=== PATIENT | female | born 1950 | race Caucasian/White ===

== ENCOUNTER 2018-02-25 13:24 | Emergency (ER) | payer OTHER, SELFPAY ==
[2018-02-25 13:25] VITALS: BP 140/67; PULSE 70; RESP 20; TEMP 36.5; O2SAT 97; BMI 26.1
[2018-02-25 13:49] VITALS: BP 123/75; PULSE 66; RESP 14
[2018-02-25 13:55] LABS: Add Manual Diff / Slide Review NO; Basophils Percent Auto 0.9 % (0-2); Eosinophils Percent Auto 5.6 % (2-4); Hematocrit 42.4 % (36-46); Hemoglobin 14.6 g/dL (12.0-16.0); Lymphocytes Percent Auto 24.8 % (25-40); Mean Corpuscular HGB Conc 34.4 % (30-36); Mean Corpuscular Hemoglobin 30.7 PG (26-34); Mean Corpuscular Volume 89.5 fL (80-100); Monocytes Percent Auto 7.4 % (3-14); Neutrophils Absolute Auto 4800 /uL (3000-5900); Neutrophils Percent Auto 61.3 % (50-75); Platelet Count 211 X10^3/uL (150-400); Red Blood Cell Count 4.74 X10^6/uL (4.0-5.2); Red Cell Distribution Width 13.3 % (11.6-14.8); White Blood Cell Count 7.8 X10^3/uL (4.5-11.0)
[2018-02-25 14:01] LABS: Prothrombin Time 10.7 SECONDS (10.1-12.7)
[2018-02-25 14:04] LABS: PTT Partial Thromboplastin Tim 26 SECONDS (26.4-36.2)
--- NOTE | 2018-02-25 14:07 | DI.CT.S_ITS ---
PROCEDURE: CT HEAD/BRAIN WO CON INDICATIONS: speech difficuly a couple of days TECHNIQUE: Noncontrast 4.5 mm thick angled axial sections acquired from the foramen magnum to the vertex, with coronal and sagittal reformats. For radiation dose reduction, the following was used: automated exposure control, adjustment of mA and/or kV according to patient size. COMPARISON: None. FINDINGS: Image quality: Excellent. CSF spaces: Basal cisterns are patent. No extra-axial fluid collections. The ventricles are symmetric in size and shape. Brain: No intracranial bleeds or masses. 1 cm soft tissue attenuation focus seen in the right parietal scalp There is cerebral volume loss for age, with resultant ventricular and sulcal prominence. There are periventricular and deep white matter chronic small vessel ischemic changes. There is intracranial internal carotid artery atherosclerosis. Skull and face: Calvarium and visualized facial bones appear intact, without suspicious lesions. Sinuses: Visualized sinuses and mastoids are clear. IMPRESSION: No acute intracranial process. Soft tissue focus involving the right parietal scalp. Please nata clinically and with direct visual inspection is these findings are nonspecific Dictated by: Zack Conroy M.D. on 02/25/2018 at 15:47 Approved by: Zack Conroy M.D. on 02/25/2018 at 15:49
--- NOTE | 2018-02-25 14:20 | ED.NEUROSD ---
HPI - Neuro Symptoms/Deficit General Chief Complaint: Neuro Symptoms/Deficit Stated Complaint: SLURRED SPEECH Time Seen by Provider: 02/25/18 13:45 Source: patient and family Mode of arrival: ambulatory Limitations: no limitations History of Present Illness HPI Narrative: Patient is a 67-year-old female who presents with a variety of complaints. To me her large complaint is back pain with numbness and tingling. She does have a history of back pain. She is walking around today when it started hurting her that she then laid down on cement and felt better. Her says that her speech is been a little bit off for the last 3 days. Just maybe some difficulty finding words actually does find the correct word in may be little slurring of speech. No vision changes no unilateral weakness, no vomiting. She does take fluoxetine but she has been taking that for number of years is been no change in her dosage she denies taking any extra. On Anticoagulants: No Related Data Previous Rx's Medication Instructions Recorded fluoxetine 20 mg PO QDAY #90 cap 12/15/16 fluoxetine 10 mg PO DAILY #30 cap 02/25/18 Allergies Allergy/AdvReac Type Severity Reaction Status Date / Time shellfish derived Allergy Intermediate Hives Verified 02/25/18 15:10 Review of Systems Review of Systems All systems reviewed & are unremarkable except as noted in HPI and below Constitutional Denies chills, Denies fever(s), Denies lethargy and Denies weakness Cardiovascular Denies chest pain, Denies irregular heart rhythm, Denies lightheadedness, Denies palpitations, Denies dyspnea, Denies dyspnea on exertion and Denies orthopnea Respiratory Denies cough, Denies dyspnea, Denies dyspnea on exertion and Denies wheezing Gastrointestinal Gastrointestinal: Denies abdominal pain, Denies change in bowel habits, Denies diarrhea, Denies nausea and Denies vomiting Genitourinary Denies hematuria, Denies flank pain, Denies urinary incontinence and Denies urinary urgency Musculoskeletal Reports back pain, Denies muscle weakness, Denies numbness and Denies tingling Integumentary/Breasts Denies pruritus, Denies erythema, Denies rash and Denies wounds Neurologic Reports as per HPI, Reports behavioral changes, Denies confusion, Denies numbness, Denies tingling and Denies weakness Psychiatric Reports behavioral changes and Denies confusion Endocrine Denies palpitations Allergic/Immunologic Denies wheezing [facility] Medical History Depression (Acute) Social History Smoking Status: Never smoker Exam Initial Vital Signs Initial Vital Signs: Vital Signs Temperature 97.7 F 02/25/18 13:25 Pulse Rate 70 02/25/18 13:25 Respiratory Rate 20 02/25/18 13:25 Blood Pressure 140/67 02/25/18 13:25 Pulse Oximetry 97 02/25/18 13:25 GENERAL: Well-appearing, well-nourished and in no acute distress. HEENT: Head atraumatic,EOMI, pupils reactive, face symmetric, dry mucous membranes CARDIOVASCULAR: Regular rate and rhythm without murmurs, rubs or gallops. RESPIRATORY: Breath sounds equal bilaterally, no wheezes rales or rhonchi. ABDOMEN: Soft, nontender. Normoactive bowel sounds all 4 quadrants. No guarding or rebound. EXTREMITIES: Normal range of motion, no clubbing or edema. Neurovascularly intact NEUROLOGICAL: Alert and oriented x4.Normal gait and speech. Cranial nerves II through XII grossly intact. Good [id number], good [id number], strength equal bilaterally, no dysarthria or aphasia, sensation in tact to soft touch bilaterally, no visual changes, no facial droop SKIN: Warm, dry, no laceration, no petechiae, no rashes or lesions. Scores NIH Stroke Scale Level of Conciousness: Alert, keenly responsive Ask month/age: Answers both questions correctly. Open/close eyes, close hand: Performs both tasks correctly Best gaze horizontal: Normal Visual godfrey: No visual loss Facial palsy: Normal symetrical movement Left arm drift: No drift for full 10 sec Right arm drift: No drift for full 10 sec Left leg drift: No drift for full 10 sec Right leg drift: No drift for full 10 sec Limb ataxia: Absent Sensory on face/arms/legs: Normal, no sensory loss Best language: No aphasia, normal Dysarthria: Normal Extinction or inattention: No abnormality Total NIH Stroke scale score: 0 Course Orders Ordered: ED Orders 02/25/18 13:39 EKG-12 Lead Stat 02/25/18 13:45 Complete Blood Count AUTO DIFF Stat Comprehensive Metabolic Panel Stat Ethanol (ETOH) Stat Partial Thromboplastin Time Stat Prothrombin Time INR Stat 02/25/18 14:07 CT head/brain wo con Stat 02/25/18 15:10 Urine Drug Screen, Rapid Stat Vital Signs - 8 hr 02/25/18 13:25 02/25/18 13:49 02/25/18 14:30 Temperature 97.7 F Pulse Rate 70 66 Respiratory Rate 20 14 Blood Pressure 140/67 Blood Pressure [Right Arm] 123/75 138/90 Pulse Oximetry 97 02/25/18 15:21 02/25/18 15:30 02/25/18 16:43 Temperature Pulse Rate 77 75 72 Respiratory Rate 14 16 16 Blood Pressure Blood Pressure [Right Arm] 132/80 120/79 122/73 Pulse Oximetry 100 98 98 MDM - Neuro Symptoms/Deficit Lab Data Attestation: I reviewed the patient's lab results. Result diagrams: 02/25/18 13:45 02/25/18 13:45 Lab Results 02/25/18 02/25/18 02/25/18 Range/Units 13:45 13:45 13:45 WBC 7.8 (4.5-11.0) X10^3/uL RBC 4.74 (4.0-5.2) X10^6/uL Hgb 14.6 (12.0-16.0) g/dL Hct 42.4 (36-46) % MCV 89.5 (80-100) fL MCH 30.7 (26-34) PG MCHC 34.4 (30-36) % RDW 13.3 (11.6-14.8) % Plt Count 211 (150-400) X10^3/uL Neut % (Auto) 61.3 (50-75) % Lymph % (Auto) 24.8 L (25-40) % [place] % (Auto) 7.4 (3-14) % Eos % (Auto) 5.6 H (2-4) % Baso % (Auto) 0.9 (0-2) % Neut # (Auto) 4800 (1178-2523) /uL PT 10.7 (10.1-12.7) SECONDS INR 1.0 (0.9-1.3) APTT 26 L (26.4-36.2) SECONDS Sodium 144 (137-145) mmol/L Potassium 4.3 (3.4-5.1) mmol/L Chloride 109 H (98-107) mmol/L Carbon Dioxide 27 (22-32) mmol/L BUN 13 (7-17) mg/dL Creatinine 0.70 (0.52-1.04) mg/dL Estimated GFR > 60.0 (>60) mL/min BUN/Creatinine Ratio 18.6 (6-22) Glucose 96 (80-110) mg/dL Calcium 9.4 (8.4-10.2) mg/dL Total Bilirubin 0.5 (0.2-1.3) mg/dL AST 29 (14-36) IU/L ALT 32 (9-52) IU/L Alkaline Phosphatase 73 (38-126) U/L Total Protein 7.3 (6.3-8.2) g/dL Albumin 4.3 (3.5-5.0) g/dL Globulin 3.0 (1.7-4.1) g/dL Albumin/Globulin Ratio 1.4 (1.0-2.8) Urine Opiates Screen (Negative) Ur Oxycodone Screen (Negative) Urine Methadone Screen (Negative) Ur Barbiturates Screen (Negative) U Tricyclic Antidepress (Negative) Ur Phencyclidine Scrn (Negative) Ur Amphetamines Screen (Negative) U Methamphetamines Scrn (Negative) Ur MDMA Scrn (Ecstasy) (Negative) U Benzodiazepines Scrn (Negative) Urine Cocaine Screen (Negative) U Marijuana (THC) Screen (Negative) Ethyl Alcohol < 10 mg/dL 02/25/18 Range/Units 15:10 WBC (4.5-11.0) X10^3/uL RBC (4.0-5.2) X10^6/uL Hgb (12.0-16.0) g/dL Hct (36-46) % MCV (80-100) fL MCH (26-34) PG MCHC (30-36) % RDW (11.6-14.8) % Plt Count (150-400) X10^3/uL Neut % (Auto) (50-75) % Lymph % (Auto) (25-40) % [place] % (Auto) (3-14) % Eos % (Auto) (2-4) % Baso % (Auto) (0-2) % Neut # (Auto) (0763-5460) /uL PT (10.1-12.7) SECONDS INR (0.9-1.3) APTT (26.4-36.2) SECONDS Sodium (137-145) mmol/L Potassium (3.4-5.1) mmol/L Chloride (98-107) mmol/L Carbon Dioxide (22-32) mmol/L BUN (7-17) mg/dL Creatinine (0.52-1.04) mg/dL Estimated GFR (>60) mL/min BUN/Creatinine Ratio (6-22) Glucose (80-110) mg/dL Calcium (8.4-10.2) mg/dL Total Bilirubin (0.2-1.3) mg/dL AST (14-36) IU/L ALT (9-52) IU/L Alkaline Phosphatase (38-126) U/L Total Protein (6.3-8.2) g/dL Albumin (3.5-5.0) g/dL Globulin (1.7-4.1) g/dL Albumin/Globulin Ratio (1.0-2.8) Urine Opiates Screen Negative (Negative) Ur Oxycodone Screen Negative (Negative) Urine Methadone Screen Negative (Negative) Ur Barbiturates Screen Negative (Negative) U Tricyclic Antidepress Negative (Negative) Ur Phencyclidine Scrn Negative (Negative) Ur Amphetamines Screen Negative (Negative) U Methamphetamines Scrn Negative (Negative) Ur MDMA Scrn (Ecstasy) Negative (Negative) U Benzodiazepines Scrn Negative (Negative) Urine Cocaine Screen Negative (Negative) U Marijuana (THC) Screen Negative (Negative) Ethyl Alcohol mg/dL Urine Dip Bedside Urine Glucose Negative Bedside Urine Bilirubin - Negative Bedside Urine Ketone - Negative Urine Specific Pep 1.015 Bedside Urine Occult Blood - Negative Bedside Urine pH 7.0 Bedside Urine Protein - Negative Bedside Urine Urobilinogen - Negative Bedside Urine Nitrite - Negative Bedside Urine Leukocytes - Negative Esterase Imaging Data CT scan - head: Radiologist's impression: PROCEDURE: CT HEAD/BRAIN WO CON INDICATIONS: speech difficuly a couple of days TECHNIQUE: Noncontrast 4.5 mm thick angled axial sections acquired from the foramen magnum to the vertex, with coronal and sagittal reformats. For radiation dose reduction, the following was used: automated exposure control, adjustment of mA and/or kV according to patient size. COMPARISON: None. FINDINGS: Image quality: Excellent. CSF spaces: Basal cisterns are patent. No extra-axial fluid collections. The ventricles are symmetric in size and shape. Brain: No intracranial bleeds or masses. 1 cm soft tissue attenuation focus seen in the right parietal scalp There is cerebral volume loss for age, with resultant ventricular and sulcal prominence. There are periventricular and deep white matter chronic small vessel ischemic changes. There is intracranial internal carotid artery atherosclerosis. Skull and face: Calvarium and visualized facial bones appear intact, without suspicious lesions. Sinuses: Visualized sinuses and mastoids are clear. IMPRESSION: No acute intracranial process. Soft tissue focus involving the right parietal scalp. Please nata clinically and with direct visual inspection is these findings are nonspecific Dictated by: Zack Conroy M.D. on 02/25/2018 at 15:47 ECG Data Attestation: I personally reviewed and interpreted this ECG as follows: Prior ECG tracings: available for review Interpretation: Sinus rhythm rate 63 SC interval 177 QRS 80 a QTC [address] changes or T-wave inversions no prior to compare [facility] Narrative Medical decision making narrative: The patient's speech really I do not appreciate dysarthria or a facial her mouth seems try to me. Possibility of medication reaction of fluoxetine can cause altered mental status. She shows no signs of serotonin syndrome she denies taking any [id number] medications. She really was complaining more of back pain and leg pain. She has been resting comfortably in the gurney without any difficulty. She has not requested pain medication or appeared in any pain. Patient really does not have signs or symptoms consistent with serotonin syndrome or anticholinergic syndrome. She does seem to be agitated but not consistently she is not tachycardic or hyperthermic. She does have some side effects of the fluoxetine. And despite being on medication for a number of years can developed some adverse reactions. She does not seem toxic. At this time I will decrease her fluoxetine dose and recommend close follow-up with her primary care physician. Both her and she understand this. I discussed all findings with the patient and spouse, Education has been performed regarding treatment plan, diagnosis, warning signs and symptoms and all concerns have been addressed. Verbally agree with and understood all of the above. Discharge Plan Departure Patient Disposition: Home Clinical Impression: Dehydration, Adverse reaction to antidepressant drug Discharge Date/Time: 02/25/18 16:53 Interventions: ED Discharge Assessment Last Done: 02/25/18 16:52 Instructions: DI for Adverse Drug Reaction -- Other Activity Restrictions/Additional Instructions: *You have been diagnosed with possible drug reaction and dehydration *What to do: No sign of TIA or mini-stroke no sign of infection blood work and CT scan and EKG are reassuring *Continue to take medications as directed -stop taking 20 mg of fluoxetine -start time taking 10 mg of fluoxetine, follow up with primary care provider for further assistance Do not mix [id number] medication with her antidepressant *Follow up with your primary care provider in 2-3 days *Return to ER if you should have worsening agitation, anxiety, fever or any new, worsening or concerning symptoms Prescriptions: New fluoxetine 10 mg capsule 10 mg PO DAILY Qty: 30 RF: 0 No Action fluoxetine 20 MG capsule 20 mg PO QDAY Qty: 90 RF: 3 Referrals: Jamison Mcgee [Non-Staff] - Kofi Cisneros MD [Primary Care Provider] -
--- NOTE | 2018-02-25 14:26 | ED_ITS ---
HPI - Neuro Symptoms/Deficit General Chief Complaint: Neuro Symptoms/Deficit Stated Complaint: SLURRED SPEECH Time Seen by Provider: 02/25/18 13:45 Source: patient and family Mode of arrival: ambulatory Limitations: no limitations History of Present Illness HPI Narrative: Patient is a 67-year-old female who presents with a variety of complaints. To me her large complaint is back pain with numbness and tingling. She does have a history of back pain. She is walking around today when it started hurting her that she then laid down on cement and felt better. Her says that her speech is been a little bit off for the last 3 days. Just maybe some difficulty finding words actually does find the correct word in may be little slurring of speech. No vision changes no unilateral weakness, no vomiting. She does take fluoxetine but she has been taking that for number of years is been no change in her dosage she denies taking any extra. On Anticoagulants: No Related Data Previous Rx's Medication Instructions Recorded fluoxetine 20 mg PO QDAY #90 cap 12/15/16 fluoxetine 10 mg PO DAILY #30 cap 02/25/18 Allergies Allergy/AdvReac Type Severity Reaction Status Date / Time shellfish derived Allergy Intermediate Hives Verified 02/25/18 15:10 Review of Systems Review of Systems All systems reviewed & are unremarkable except as noted in HPI and below Constitutional Denies chills, Denies fever(s), Denies lethargy and Denies weakness Cardiovascular Denies chest pain, Denies irregular heart rhythm, Denies lightheadedness, Denies palpitations, Denies dyspnea, Denies dyspnea on exertion and Denies orthopnea Respiratory Denies cough, Denies dyspnea, Denies dyspnea on exertion and Denies wheezing Gastrointestinal Gastrointestinal: Denies abdominal pain, Denies change in bowel habits, Denies diarrhea, Denies nausea and Denies vomiting Genitourinary Denies hematuria, Denies flank pain, Denies urinary incontinence and Denies urinary urgency Musculoskeletal Reports back pain, Denies muscle weakness, Denies numbness and Denies tingling Integumentary/Breasts Denies pruritus, Denies erythema, Denies rash and Denies wounds Neurologic Reports as per HPI, Reports behavioral changes, Denies confusion, Denies numbness, Denies tingling and Denies weakness Psychiatric Reports behavioral changes and Denies confusion Endocrine Denies palpitations Allergic/Immunologic Denies wheezing REPLACED BY [facility] Medical History Depression (Acute) Social History Smoking Status: Never smoker Exam Initial Vital Signs Initial Vital Signs: Vital Signs Temperature 97.7 F 02/25/18 13:25 Pulse Rate 70 02/25/18 13:25 Respiratory Rate 20 02/25/18 13:25 Blood Pressure 140/67 02/25/18 13:25 Pulse Oximetry 97 02/25/18 13:25 GENERAL: Well-appearing, well-nourished and in no acute distress. HEENT: Head atraumatic,EOMI, pupils reactive, face symmetric, dry mucous membranes CARDIOVASCULAR: Regular rate and rhythm without murmurs, rubs or gallops. RESPIRATORY: Breath sounds equal bilaterally, no wheezes rales or rhonchi. ABDOMEN: Soft, nontender. Normoactive bowel sounds all 4 quadrants. No guarding or rebound. EXTREMITIES: Normal range of motion, no clubbing or edema. Neurovascularly intact NEUROLOGICAL: Alert and oriented x4.Normal gait and speech. Cranial nerves II through XII grossly intact. Good [id number], good [id number], strength equal bilaterally, no dysarthria or aphasia, sensation in tact to soft touch bilaterally, no visual changes, no facial droop SKIN: Warm, dry, no laceration, no petechiae, no rashes or lesions. Scores NIH Stroke Scale Level of Conciousness: Alert, keenly responsive Ask month/age: Answers both questions correctly. Open/close eyes, close hand: Performs both tasks correctly Best gaze horizontal: Normal Visual godfrey: No visual loss Facial palsy: Normal symetrical movement Left arm drift: No drift for full 10 sec Right arm drift: No drift for full 10 sec Left leg drift: No drift for full 10 sec Right leg drift: No drift for full 10 sec Limb ataxia: Absent Sensory on face/arms/legs: Normal, no sensory loss Best language: No aphasia, normal Dysarthria: Normal Extinction or inattention: No abnormality Total NIH Stroke scale score: 0 Course Orders Ordered: ED Orders 02/25/18 13:39 EKG-12 Lead Stat 02/25/18 13:45 Complete Blood Count AUTO DIFF Stat Comprehensive Metabolic Panel Stat Ethanol (ETOH) Stat Partial Thromboplastin Time Stat Prothrombin Time INR Stat 02/25/18 14:07 CT head/brain wo con Stat 02/25/18 15:10 Urine Drug Screen, Rapid Stat Vital Signs - 8 hr 02/25/18 13:25 02/25/18 13:49 02/25/18 14:30 Temperature 97.7 F Pulse Rate 70 66 Respiratory Rate 20 14 Blood Pressure 140/67 Blood Pressure [Right Arm] 123/75 138/90 Pulse Oximetry 97 02/25/18 15:21 02/25/18 15:30 02/25/18 16:43 Temperature Pulse Rate 77 75 72 Respiratory Rate 14 16 16 Blood Pressure Blood Pressure [Right Arm] 132/80 120/79 122/73 Pulse Oximetry 100 98 98 MDM - Neuro Symptoms/Deficit Lab Data Attestation: I reviewed the patient's lab results. Result diagrams: 02/25/18 13:45 02/25/18 13:45 Lab Results 02/25/18 02/25/18 02/25/18 Range/Units 13:45 13:45 13:45 WBC 7.8 (4.5-11.0) X10^3/uL RBC 4.74 (4.0-5.2) X10^6/uL Hgb 14.6 (12.0-16.0) g/dL Hct 42.4 (36-46) % MCV 89.5 (80-100) fL MCH 30.7 (26-34) PG MCHC 34.4 (30-36) % RDW 13.3 (11.6-14.8) % Plt Count 211 (150-400) X10^3/uL Neut % (Auto) 61.3 (50-75) % Lymph % (Auto) 24.8 L (25-40) % Flag[place] % (Auto) 7.4 (3-14) % Eos % (Auto) 5.6 H (2-4) % Baso % (Auto) 0.9 (0-2) % Neut # (Auto) 4800 (3021-5743) /uL PT 10.7 (10.1-12.7) SECONDS INR 1.0 (0.9-1.3) APTT 26 L (26.4-36.2) SECONDS Sodium 144 (137-145) mmol/L Potassium 4.3 (3.4-5.1) mmol/L Chloride 109 H (98-107) mmol/L Carbon Dioxide 27 (22-32) mmol/L BUN 13 (7-17) mg/dL Creatinine 0.70 (0.52-1.04) mg/dL Estimated GFR > 60.0 (>60) mL/min BUN/Creatinine Ratio 18.6 (6-22) Glucose 96 (80-110) mg/dL Calcium 9.4 (8.4-10.2) mg/dL Total Bilirubin 0.5 (0.2-1.3) mg/dL AST 29 (14-36) IU/L ALT 32 (9-52) IU/L Alkaline Phosphatase 73 (38-126) U/L Total Protein 7.3 (6.3-8.2) g/dL Albumin 4.3 (3.5-5.0) g/dL Globulin 3.0 (1.7-4.1) g/dL Albumin/Globulin Ratio 1.4 (1.0-2.8) Urine Opiates Screen (Negative) Ur Oxycodone Screen (Negative) Urine Methadone Screen (Negative) Ur Barbiturates Screen (Negative) U Tricyclic Antidepress (Negative) Ur Phencyclidine Scrn (Negative) Ur Amphetamines Screen (Negative) U Methamphetamines Scrn (Negative) Ur MDMA Scrn (Ecstasy) (Negative) U Benzodiazepines Scrn (Negative) Urine Cocaine Screen (Negative) U Marijuana (THC) Screen (Negative) Ethyl Alcohol < 10 mg/dL 02/25/18 Range/Units 15:10 WBC (4.5-11.0) X10^3/uL RBC (4.0-5.2) X10^6/uL Hgb (12.0-16.0) g/dL Hct (36-46) % MCV (80-100) fL MCH (26-34) PG MCHC (30-36) % RDW (11.6-14.8) % Plt Count (150-400) X10^3/uL Neut % (Auto) (50-75) % Lymph % (Auto) (25-40) % Flag[place] % (Auto) (3-14) % Eos % (Auto) (2-4) % Baso % (Auto) (0-2) % Neut # (Auto) (2362-5057) /uL PT (10.1-12.7) SECONDS INR (0.9-1.3) APTT (26.4-36.2) SECONDS Sodium (137-145) mmol/L Potassium (3.4-5.1) mmol/L Chloride (98-107) mmol/L Carbon Dioxide (22-32) mmol/L BUN (7-17) mg/dL Creatinine (0.52-1.04) mg/dL Estimated GFR (>60) mL/min BUN/Creatinine Ratio (6-22) Glucose (80-110) mg/dL Calcium (8.4-10.2) mg/dL Total Bilirubin (0.2-1.3) mg/dL AST (14-36) IU/L ALT (9-52) IU/L Alkaline Phosphatase (38-126) U/L Total Protein (6.3-8.2) g/dL Albumin (3.5-5.0) g/dL Globulin (1.7-4.1) g/dL Albumin/Globulin Ratio (1.0-2.8) Urine Opiates Screen Negative (Negative) Ur Oxycodone Screen Negative (Negative) Urine Methadone Screen Negative (Negative) Ur Barbiturates Screen Negative (Negative) U Tricyclic Antidepress Negative (Negative) Ur Phencyclidine Scrn Negative (Negative) Ur Amphetamines Screen Negative (Negative) U Methamphetamines Scrn Negative (Negative) Ur MDMA Scrn (Ecstasy) Negative (Negative) U Benzodiazepines Scrn Negative (Negative) Urine Cocaine Screen Negative (Negative) U Marijuana (THC) Screen Negative (Negative) Ethyl Alcohol mg/dL Urine Dip Bedside Urine Glucose Negative Bedside Urine Bilirubin - Negative Bedside Urine Ketone - Negative Urine Specific Hoffmeister 1.015 Bedside Urine Occult Blood - Negative Bedside Urine pH 7.0 Bedside Urine Protein - Negative Bedside Urine Urobilinogen - Negative Bedside Urine Nitrite - Negative Bedside Urine Leukocytes - Negative Esterase Imaging Data CT scan - head: Radiologist's impression: PROCEDURE: CT HEAD/BRAIN WO CON INDICATIONS: speech difficuly a couple of days TECHNIQUE: Noncontrast 4.5 mm thick angled axial sections acquired from the foramen magnum to the vertex, with coronal and sagittal reformats. For radiation dose reduction, the following was used: automated exposure control, adjustment of mA and/or kV according to patient size. COMPARISON: None. FINDINGS: Image quality: Excellent. CSF spaces: Basal cisterns are patent. No extra-axial fluid collections. The ventricles are symmetric in size and shape. Brain: No intracranial bleeds or masses. 1 cm soft tissue attenuation focus seen in the right parietal scalp There is cerebral volume loss for age, with resultant ventricular and sulcal prominence. There are periventricular and deep white matter chronic small vessel ischemic changes. There is intracranial internal carotid artery atherosclerosis. Skull and face: Calvarium and visualized facial bones appear intact, without suspicious lesions. Sinuses: Visualized sinuses and mastoids are clear. IMPRESSION: No acute intracranial process. Soft tissue focus involving the right parietal scalp. Please nata clinically and with direct visual inspection is these findings are nonspecific Dictated by: Zack Conroy M.D. on 02/25/2018 at 15:47 ECG Data Attestation: I personally reviewed and interpreted this ECG as follows: Prior ECG tracings: available for review Interpretation: Sinus rhythm rate 63 [place] interval 177 QRS 80 a QTC [address] changes or T-wave inversions no prior to compare [facility] Narrative Medical decision making narrative: The patient's speech really I do not appreciate dysarthria or a facial her mouth seems try to me. Possibility of medication reaction of fluoxetine can cause altered mental status. She shows no signs of serotonin syndrome she denies taking any [id number] medications. She really was complaining more of back pain and leg pain. She has been resting comfortably in the gurney without any difficulty. She has not requested pain medication or appeared in any pain. Patient really does not have signs or symptoms consistent with serotonin syndrome or anticholinergic syndrome. She does seem to be agitated but not consistently she is not tachycardic or hyperthermic. She does have some side effects of the fluoxetine. And despite being on medication for a number of years can developed some adverse reactions. She does not seem toxic. At this time I will decrease her fluoxetine dose and recommend close follow-up with her primary care physician. Both her and she understand this. I discussed all findings with the patient and spouse, Education has been performed regarding treatment plan, diagnosis, warning signs and symptoms and all concerns have been addressed. Verbally agree with and understood all of the above. Discharge Plan Departure Patient Disposition: Home Clinical Impression: Dehydration, Adverse reaction to antidepressant drug Discharge Date/Time: 02/25/18 16:53 Interventions: ED Discharge Assessment Last Done: 02/25/18 16:52 Instructions: DI for Adverse Drug Reaction -- Other Activity Restrictions/Additional Instructions: *You have been diagnosed with possible drug reaction and dehydration *What to do: No sign of TIA or mini-stroke no sign of infection blood work and CT scan and EKG are reassuring *Continue to take medications as directed -stop taking 20 mg of fluoxetine -start time taking 10 mg of fluoxetine, follow up with primary care provider for further assistance Do not mix [id number] medication with her antidepressant *Follow up with your primary care provider in 2-3 days *Return to ER if you should have worsening agitation, anxiety, fever or any new , worsening or concerning symptoms Prescriptions: New fluoxetine 10 mg capsule 10 mg PO DAILY Qty: 30 RF: 0 No Action fluoxetine 20 MG capsule 20 mg PO QDAY Qty: 90 RF: 3 Referrals: Jamison Mcgee [Non-Staff] - Kofi Cisneros MD [Primary Care Provider] -
[2018-02-25 14:30] VITALS: BP 138/90
[2018-02-25 14:46] LABS: Alanine Aminotransferase 32 IU/L (9-52); Albumin 4.3 g/dL (3.5-5.0); Albumin Globulin Ratio 1.4 (1.0-2.8); Alkaline Phosphatase 73 U/L (38-126); Aspartate Aminotransferase 29 IU/L (14-36); BUN Creatinine Ratio 18.6 (6-22); Bilirubin Total 0.5 mg/dL (0.2-1.3); Blood Urea Nitrogen 13 mg/dL (7-17); Calcium 9.4 mg/dL (8.4-10.2); Carbon Dioxide 27 mmol/L (22-32); Chloride 109 mmol/L (98-107); Estimated Glomerular Filt Rate > 60.0 mL/min (>60); Ethanol (ETOH) < 10 mg/dL; Glucose 96 mg/dL (80-110); HEMOLYSIS 21 (0-50); Potassium 4.3 mmol/L (3.4-5.1); Sodium 144 mmol/L (137-145); Total Protein 7.3 g/dL (6.3-8.2)
--- NOTE | 2018-02-25 14:51 | PC.NURSE ---
Went into room to assess pts neuro status, pt states she has been having slurred speech since Tuesday. Pt appeared to be getting increasingly aggitated when answering assessment questions. Pt requests another nurse states I do not trust you.. in room, requested to speak with me out side the room. Pts verbalizes outside pts room that she has not been acting herself lately, and she has been more agitated lately than normal. He states this is not like her at all, you did nothing wrong. She has been acting very strange and her friends notice it too. Provider aware of situation, no new orders at this time. Pt being transported to CT by wheelchair.
[2018-02-25 15:21] VITALS: BP 132/80; PULSE 77; RESP 14; O2SAT 100
[2018-02-25 15:30] VITALS: BP 120/79; PULSE 75; RESP 16; O2SAT 98
[2018-02-25 15:39] LABS: Urine Amphetamines Negative (Negative); Urine Barbiturates Negative (Negative); Urine Benzodiazepines Negative (Negative); Urine Cocaine Negative (Negative); Urine MDMA Negative (Negative); Urine Methadone Negative (Negative); Urine Methamphetamines Negative (Negative); Urine Morphine/Opi cutoff 2000 Negative (Negative); Urine Phencyclidine Negative (Negative); Urine Tetrahydrocannabinol Negative (Negative); Urine Tricyclic Antidepressant Negative (Negative)
[2018-02-25 15:40] LABS: Urine Oxycodone Negative (Negative)
[2018-02-25 16:43] VITALS: BP 122/73; PULSE 72; RESP 16; O2SAT 98
== END 2018-02-25 16:53 | disposition home or self-care (01) ==
PROVIDERS: Emergency Provider Emergency Medicine; Family Provider Family Medicine; PCP Family Medicine
DX: T43.205A Adverse effect of unspecified antidepressants, initial encounter (principal); E86.0 Dehydration
CPT/HCPCS: 36591; 70450; 80053; 80305; 80320; 81003; 85025; 85610; 85730; 93005; 99283; 99285; 99291